=== PATIENT | male | born 1965 | race Native Hawaiian/Other Pacific Islander ===

== ENCOUNTER 2020-12-15 12:45 | Outpatient (CLI) | payer OTHER ==
[~2020-12-15] VITALS: Ht 182.9 cm; Wt 90.3 kg
== END 2020-12-15 19:44 | disposition home or self-care (01) ==
LOC: INF 12:45
PROVIDERS: ATTEND Family Medicine
DX: Z23 Encounter for immunization (principal); U07.1 COVID-19
CPT/HCPCS: 96365; M0244